=== PATIENT | female | born 1950 | race African-American/Black ===

== ENCOUNTER 2017-05-24 10:03 | Outpatient (CLI) | payer MEDICARE, MEDICAID ==
--- NOTE | 2017-05-24 12:38 | RAD ---
KUB: History: Microscopic hematuria. FINDINGS: The bowel gas pattern appears nonobstructed. Air and stool obscure both renal outlines but I see no obvious renal calculi. Calcifications in the pelvis appear to represent phleboliths. There are arthritic changes in the spine. The bones appear demineralized. IMPRESSION: No acute findings. No definitive renal calculi seen. POS: OFF
--- NOTE | 2017-05-24 12:46 | ULT ---
RENAL ULTRASOUND: History: Microscopic hematuria. FINDINGS: Real-time imaging of the right and left kidneys were performed. Left kidney measures 10.6 cm in ed th. There is some mild cortical thinning and mild increased echogenicity to the kidney. The right ki dney is difficult to visualize. It is of increased echogenicity. It measures approximately 9 cm. It is low in position and this makes it difficult to assess. No obstruction of either kidney. The [facility] er had a Whitfield catheter in place. IMPRESSION: Increased echogenicity to both kidneys suggesting some medial renal parenchymal disease. No obstruct ion. The right kidney is poorly visualized. POS: OFF
== END 2017-05-24 10:04 | disposition home or self-care (01) ==
LOC: ULT 10:03
PROVIDERS: ATTEND Urology
DX: L73.2 Hidradenitis suppurativa (principal); R31.29 Other microscopic hematuria; Z92.89 Personal history of other medical treatment
CPT/HCPCS: 74000; 76770

== ENCOUNTER 2017-08-30 10:13 | Outpatient (CLI) | payer MEDICARE, MEDICAID ==
[2017-08-30 10:54] LABS: Anion Gap 9 mmol/L (10-20); BUN (Urea Nitrogen) 21 mg/dL (9.8-20.1); Calc. Creatinine Clearance 0 mL/min (70-130); Calcium 8.5 mg/dL (7.8-10.44); Carbon Dioxide 23 mmol/L (23-31); Chloride 112 mmol/L (98-107); Estimated GFR-MDRD 47; Glucose 88 mg/dL (80-115); Sodium 140 mmol/L (136-145)
--- NOTE | 2017-08-30 13:40 | RAD ---
KUB: Date: 08/30/17 COMPARISON: 05/24/17. HISTORY: Incontinence. FINDINGS: Single view of abdomen shows a nonspecific, nonobstructed bowel gas pattern. No suspicious calcificat ions are present. Degenerative changes are seen in the spine. IMPRESSION: Nonobstructed bowel gas pattern. POS: [facility]
--- NOTE | 2017-08-30 13:44 | ULT ---
RENAL ULTRASOUND: INDICATIONS: History of urgency, incontinence, and hidradenitis. The patient has a Whitfield has place with multiple nonhealing wounds in the pelvic region. COMPARISON: 05/24/2017 FINDINGS: The right kidney measures 7.3 x 4.3 x 3.1 cm. The left kidney measures 10.2 x 5.3 x 4.7 cm. There i s a Whitfield in place. Both kidneys are echogenic, but the right is more so and slightly more atrophic than the left kidney. No hydronephrosis or definite solid renal lesion is evident. IMPRESSION: 1. Stable increased echogenicity of both kidneys, likely related to sequela of medical renal disease . No obstruction demonstrated. Stable atrophic right kidney. 2. Whitfield catheter. POS: [facility]
== END 2017-08-30 10:14 | disposition home or self-care (01) ==
LOC: ULT 10:13
PROVIDERS: ATTEND Urology
DX: R31.29 Other microscopic hematuria (principal); N39.41 Urge incontinence; L73.2 Hidradenitis suppurativa; Z92.89 Personal history of other medical treatment; N26.1 Atrophy of kidney (terminal)
CPT/HCPCS: 74018; 76770; 80048

== ENCOUNTER 2018-03-13 14:42 | Outpatient (CLI) | payer MEDICARE, MEDICAID ==
[2018-03-13 16:09] LABS: Anion Gap 14 mmol/L (10-20); BUN (Urea Nitrogen) 17 mg/dL (9.8-20.1); Calc. Creatinine Clearance 0 mL/min (70-130); Calcium 8.9 mg/dL (7.8-10.44); Carbon Dioxide 21 mmol/L (23-31); Chloride 108 mmol/L (98-107); Estimated GFR-MDRD 38; Glucose 91 mg/dL (80-115); Potassium 4.1 mmol/L (3.5-5.1); Sodium 139 mmol/L (136-145)
--- NOTE | 2018-03-13 16:46 | RAD ---
ONE VIEW ABDOMEN: 03/13/18 COMPARISON: 08/30/17. HISTORY: Urge incontinence. FINDINGS: Nonspecific bowel gas pattern. No suspicious densities projecting over the abdomen or pelvis. Phlebol ith in the left and right hemipelvis are once again noted. There are no calcification along the expec deniz course of either ureter or along the expected positioning of the left and right renal silhouette. IMPRESSION: Nonspecific bowel gas pattern. POS: [facility]
--- NOTE | 2018-03-13 17:07 | ULT ---
ULTRASOUND RETROPERITONEUM COMPLETE: (RENAL) 03/13/18 HISTORY: 67-year-old female with "N39.41, urge incontinence." Specific mention of bladder was requested. FINDINGS: The right kidney is difficult to visualize. Review of the CT of 07/03/16 demonstrates that it is malro tated. The right kidney currently measures 6 x 2.5 x 3 cm, smaller than it measured on renal ultrasou nd of 08/30/17. No hydronephrosis of right kidney. The left kidney measures 10.5 x 5.5 x 5 cm. Bilatera l renal parenchymal echogenicity is diffusely heterogeneously increased, consistent with medical luis a l disease. No hydronephrosis of the left kidney. No large solid or cystic renal mass identified. The bladder is empty, with a Whitfield catheter within it, which is difficult to visualize because of bod y habitus. IMPRESSION: 1. Evidence for bilateral medical renal disease (increased renal parenchymal echogenicity). 2. No hydronephrosis. 3. Atrophic right kidney. 4. Whitfield catheter within an empty urinary bladder. ANGIE Arreola POS: [facility]
== END 2018-03-13 14:43 | disposition home or self-care (01) ==
LOC: ULT 14:42
PROVIDERS: ATTEND Urology
DX: N39.41 Urge incontinence (principal); L73.2 Hidradenitis suppurativa; N26.1 Atrophy of kidney (terminal); N28.89 Other specified disorders of kidney and ureter; Z96.0 Presence of urogenital implants
CPT/HCPCS: 36415; 74018; 76770; 76856; 80048

== ENCOUNTER 2019-10-17 12:36 | Outpatient (CLI) | payer MEDICARE, MEDICAID ==
--- NOTE | 2019-10-17 14:14 | MMO ---
Bilateral MAMMO Bilat Screen [facility]. CLINICAL HISTORY: Patient is 69 years old and is seen for screening. The patient has the following family history of breast cancer: sister and maternal aunt. The patient has no personal history of cancer. The patient has a history of right Excisional Biopsy in 1982 and left Excisional Biopsy in 1979?. VIEWS: The views performed were: bilateral craniocaudal; bilateral craniocaudal with tomosynthesis; bilateral mediolateral oblique; and bilateral mediolateral oblique with tomosynthesis. FILMS COMPARED: The present examination has been compared to prior imaging studies performed at [facility] on 04/30/2015, 05/09/2016 and 06/28/2017. This study has been interpreted with the assistance of computer-aided detection. MAMMOGRAM FINDINGS: The breasts are almost entirely fat. There are no suspicious masses, suspicious calcifications, or new areas of architectural distortion. IMPRESSION: THERE IS NO MAMMOGRAPHIC EVIDENCE OF MALIGNANCY. A ROUTINE FOLLOW-UP MAMMOGRAM IN 1 YEAR IS RECOMMENDED. THE RESULTS OF THIS EXAM WERE SENT TO THE PATIENT. ACR BI-RADS Category 1 - Negative MAMMOGRAPHY NOTE: 1. A negative mammogram report should not delay a biopsy if a dominant of clinically suspicious mass is present. 2. Approximately 10% to 15% of breast cancers are not detected by mammography. 3. Adenosis and dense breasts may obscure an underlying neoplasm. Reported by: CK TAPIA MD Electonically Signed: [id number]
== END 2019-10-17 12:37 | disposition home or self-care (01) ==
LOC: BICMAMMO 12:36
PROVIDERS: ATTEND Family Medicine
DX: Z12.31 Encounter for screening mammogram for malignant neoplasm of breast (principal); Z80.3 Family history of malignant neoplasm of breast; Z98.890 Other specified postprocedural states
CPT/HCPCS: 77063; 77067

== ENCOUNTER 2025-02-25 10:34 | Inpatient (IN) | payer OTHER, MEDICAID ==
[2025-02-25 11:23] LABS: #Basophils 0.03 10x3/uL (0.0-0.2); #Eosinophils 0.08 10x3/uL (0.0-0.7); #Monocytes 0.25 10x3/uL (0.11-0.59); #Neutrophils 4.28 10x3/uL (1.40-6.50); %Basophils 0.5 % (0.0-1.0); %Eosinophils 1.3 % (0.0-10.0); %Lymphocytes 25.2 % (21.0-51.0); %Monocytes 4.0 % (0.0-10.0); %Neutrophils 68.5 % (42.0-75.0); Hematocrit 25.1 % (36.0-47.0); Hemoglobin 7.5 g/dL (12.0-16.0); Mean Corpuscular Hemoglobin 22.9 pg (27.0-31.0); Mean Corpuscular Volume 76.8 fL (78.0-98.0); Platelet Count 282 10x3/uL (130-400); Red Blood Cell (RBC) Count 3.27 mill/uL (4.20-5.40); White Blood Cell (WBC) Count 6.24 10x3/uL (4.8-10.8)
[2025-02-25 11:40] LABS: ALT (SGPT) Less than 7 U/L (Less than 34); AST (SGOT) 18 U/L (11-34); Albumin 3.4 g/dL (3.1-4.5); Alkaline Phosphatase 59 U/L (40-110); Anion Gap 16 mmol/L (10-20); BUN (Urea Nitrogen) 49 mg/dL (9.8-20.1); Bilirubin, Total 0.2 mg/dL (0.3-1.2); Calc. Creatinine Clearance 0 mL/min (70-130); Calcium 8.9 mg/dL (7.8-10.44); Carbon Dioxide 16 mmol/L (23-31); Chloride 113 mmol/L (98-107); Globulin 5.0 g/dL (2.4-3.5); Glucose 85 mg/dL (83-110); Magnesium 1.9 mg/dL (1.6-2.6); Potassium 4.1 mmol/L (3.5-5.1); Sodium 141 mmol/L (136-145)
[2025-02-25] MEDS ORDERED: Acetaminophen 325 MG TAB PO PRN (12:26)
[2025-02-25 12:37] LABS: Bacteria/HPF None Seen HPF (None Seen); CAUTI Indications for Culture Alt mental st,lethar; Glucose, Urine (Dipstick) Normal (Negative); Leukocyte 25 Leu/uL (Negative); Protein, Urine (Dipstick) Negative (Neg-Trace); RBC/HPF None Seen HPF (0-3); Specific Gravity, Urine 1.009 (1.002-1.036)
[2025-02-25 12:38] LABS: Urine Culture Reflex No No
[2025-02-25 12:51] LABS: Iron 33 ug/dL (50-170); Iron Binding Capacity, Total 215 mcg/dL (265-497)
[2025-02-25 13:21] LABS: Ferritin 178.32 ng/mL (10-291); Thyroid Stimulating Hormone 1.8369 uIU/mL (0.35-4.94); Vitamin B12 244.0 pg/mL (211-911)
[2025-02-25 13:25] VITALS: BMI 25.6
[2025-02-25 20:01] LABS: Hematocrit 23.4 % (36.0-47.0); Hemoglobin 7.5 g/dL (12.0-16.0)
[2025-02-25] MEDS: Famotidine 20 MG TAB PO SCH (20:35)
[2025-02-26 06:36] LABS: #Basophils Less than 0.03 10x3/uL (0.0-0.2); #Eosinophils 0.09 10x3/uL (0.0-0.7); #Monocytes 0.34 10x3/uL (0.11-0.59); #Neutrophils 2.67 10x3/uL (1.40-6.50); %Basophils 0.2 % (0.0-1.0); %Eosinophils 1.8 % (0.0-10.0); %Lymphocytes 37.2 % (21.0-51.0); %Monocytes 6.8 % (0.0-10.0); %Neutrophils 53.8 % (42.0-75.0); Hematocrit 21.7 % (36.0-47.0); Hemoglobin 7.1 g/dL (12.0-16.0); Mean Corpuscular Hemoglobin 25.1 pg (27.0-31.0); Mean Corpuscular Volume 76.7 fL (78.0-98.0); Platelet Count 202 10x3/uL (130-400); Red Blood Cell (RBC) Count 2.83 mill/uL (4.20-5.40); White Blood Cell (WBC) Count 4.97 10x3/uL (4.8-10.8)
[2025-02-26 06:54] LABS: Anion Gap 13 mmol/L (10-20); BUN (Urea Nitrogen) 47 mg/dL (9.8-20.1); Calc. Creatinine Clearance 19 mL/min (70-130); Calcium 7.7 mg/dL (7.8-10.44); Carbon Dioxide 22 mmol/L (23-31); Chloride 108 mmol/L (98-107); Glucose 92 mg/dL (83-110); Potassium 3.5 mmol/L (3.5-5.1); Sodium 139 mmol/L (136-145)
[2025-02-26] MEDS: Ergocalciferol 1.25 MG(50,000 UNITS) CAP PO SCH (10:03)
[2025-02-26] MEDS: Potassium Bicarbonate/Cit Ac 20 MEQ TAB PO SCH (11:53)
[2025-02-26 11:56] VITALS: BMI 25.6
[2025-02-26] MEDS: Cyanocobalamin 1000 MCG/ML VIAL IM SCH (17:45)
[2025-02-26] MEDS: Folic Acid/Vit B Comp W-C PO SCH (20:26)
[2025-02-26] MEDS: Famotidine 20 MG TAB PO SCH (20:26)
[2025-02-26] MEDS: Cyanocobalamin (Vitamin B-12) 1,000 MCG TAB PO SCH (20:26)
[2025-02-26 20:28] VITALS: TEMP 98.4
[2025-02-27 05:25] LABS: #Basophils Less than 0.03 10x3/uL (0.0-0.2); #Eosinophils 0.08 10x3/uL (0.0-0.7); #Monocytes 0.39 10x3/uL (0.11-0.59); #Neutrophils 2.80 10x3/uL (1.40-6.50); %Basophils 0.4 % (0.0-1.0); %Eosinophils 1.5 % (0.0-10.0); %Lymphocytes 36.6 % (21.0-51.0); %Monocytes 7.5 % (0.0-10.0); %Neutrophils 53.6 % (42.0-75.0); Hematocrit 26.7 % (36.0-47.0); Hemoglobin 8.6 g/dL (12.0-16.0); Mean Corpuscular Hemoglobin 25.1 pg (27.0-31.0); Mean Corpuscular Volume 77.8 fL (78.0-98.0); Platelet Count 213 10x3/uL (130-400); Red Blood Cell (RBC) Count 3.43 mill/uL (4.20-5.40); White Blood Cell (WBC) Count 5.22 10x3/uL (4.8-10.8)
[2025-02-27 05:49] LABS: Anion Gap 12 mmol/L (10-20); BUN (Urea Nitrogen) 45 mg/dL (9.8-20.1); Calc. Creatinine Clearance 17 mL/min (70-130); Calcium 8.2 mg/dL (7.8-10.44); Carbon Dioxide 22 mmol/L (23-31); Chloride 109 mmol/L (98-107); Glucose 94 mg/dL (83-110); Potassium 4.0 mmol/L (3.5-5.1); Sodium 139 mmol/L (136-145)
[2025-02-27 07:39] VITALS: BP 120/69
[2025-02-27] MEDS: Calcitriol 0.25 MCG CAP PO SCH (08:41)
== END 2025-02-27 13:42 | disposition home or self-care (01) | DRG 683 ==
LOC: ERS 10:34 → T4-B 12:30 → OBSVTOIN 02-26 13:19
PROVIDERS: ADMIT Hospitalist; ATTEND Hospitalist
PROC: 30233N1 Transfusion of Nonautologous Red Blood Cells into Peripheral Vein, Percutaneous Approach (ICD-10-PCS; principal; 2025-02-26)
DX: N17.9 Acute kidney failure, unspecified (principal); E87.20 Acidosis, unspecified; N18.4 Chronic kidney disease, stage 4 (severe); D63.1 Anemia in chronic kidney disease; E11.22 Type 2 diabetes mellitus with diabetic chronic kidney disease; G40.909 Epilepsy, unspecified, not intractable, without status epilepticus; E11.51 Type 2 diabetes mellitus with diabetic peripheral angiopathy without gangrene; L73.2 Hidradenitis suppurativa; E55.9 Vitamin D deficiency, unspecified; G47.33 Obstructive sleep apnea (adult) (pediatric); E53.8 Deficiency of other specified B group vitamins; N32.81 Overactive bladder; E11.42 Type 2 diabetes mellitus with diabetic polyneuropathy; F03.90 Unspecified dementia, unspecified severity, without behavioral disturbance, psychotic disturbance, mood disturbance, and anxiety; D50.9 Iron deficiency anemia, unspecified; E88.09 Other disorders of plasma-protein metabolism, not elsewhere classified; K21.9 Gastro-esophageal reflux disease without esophagitis; Z88.0 Allergy status to penicillin; Z88.1 Allergy status to other antibiotic agents; Z90.49 Acquired absence of other specified parts of digestive tract
CPT/HCPCS: 36415; 36416; 36430; 76770; 80048; 80053; 81001; 82274; 82306; 82607; 82728; 83036; 83540; 83550; 83605; 83735; 83970; 84100; 84443; 85025; 85046; 86850; 86900; 86901; 96374; 96376; 97139; A4217; G0378; J3420; J7030; J7070; P9016